=== PATIENT | male | born 1985 | race Caucasian/White ===

== ENCOUNTER 2019-05-03 02:00 | Emergency (ER) | payer OTHER ==
[~2019-05-03] VITALS: Ht 175 cm; Wt 100.0 kg
[2019-05-03] MEDS ORDERED: ASPIRIN 81 MG CHEW (CHILDREN'S ASA) PO ONE (02:30)
[2019-05-03 02:38] LABS: BASOPHILS % (AUTO) 0 % (0-10); EOSINOPHILS # (AUTO) 0.6 10^3/uL (0.0-0.3); EOSINOPHILS % (AUTO) 5 % (0-10); HEMATOCRIT 45 % (40-54); HEMOGLOBIN 15.6 G/DL (13.3-17.7); LYMPHOCYTES # (AUTO) 4.4 X 10^3 (1.0-4.0); LYMPHOCYTES % (AUTO) 39 % (12-44); MEAN CORPUSCULAR HEMOGLOBIN 29 PG (25-34); MEAN CORPUSCULAR HGB CONC 35 G/DL (32-36); MEAN CORPUSCULAR VOLUME 84 FL (80-99); MEAN PLATELET VOLUME 10.8 FL (7.4-10.4); MONOCYTES # (AUTO) 1.3 X 10^3 (0.0-1.0); MONOCYTES % (AUTO) 12 % (0-12); NEUTROPHILS % (AUTO) 44 % (42-75); PLATELET COUNT 277 10^3/uL (130-400); RED CELL DISTRIBUTION WIDTH 13.4 % (10.0-14.5); WHITE BLOOD COUNT 11.3 10^3/uL (4.3-11.0)
[2019-05-03 02:47] LABS: INR 0.9 (0.8-1.4); PROTHROMBIN TIME PATIENT 12.3 SEC (12.2-14.7)
[2019-05-03 02:55] LABS: ALANINE AMINOTRANSFERASE 30 U/L (0-55); ALBUMIN 4.3 GM/DL (3.2-4.5); ALKALINE PHOSPHATASE 38 U/L (40-136); BILIRUBIN,TOTAL 0.3 MG/DL (0.1-1.0); BUN/CREATININE RATIO 19; CALCIUM 9.2 MG/DL (8.5-10.1); CARBON DIOXIDE 24 MMOL/L (21-32); CHLORIDE 106 MMOL/L (98-107); CREATINE KINASE 90 U/L (30-200); GFR ESTIMATED > 60; GLUCOSE 84 MG/DL (70-105); MAGNESIUM 1.8 MG/DL (1.6-2.4); POTASSIUM 3.3 MMOL/L (3.6-5.0); SODIUM 142 MMOL/L (135-145)
[2019-05-03 03:14] LABS: CREATINE KINASE MB 1.5 NG/ML (<6.6); TSH (THYROID ANALYZER) 2.74 UIU/ML (0.35-4.94)
[2019-05-03] MEDS ORDERED: KCL 20 MEQ TAB (K-DUR) PO ONE (03:30)
[2019-05-03 03:34] LABS: BILIRUBIN,URINE NEGATIVE (NEGATIVE); CLARITY,URINE CLEAR; COLOR,URINE YELLOW; GLUCOSE, URINE (UA) NEGATIVE (NEGATIVE); KETONES,URINE NEGATIVE (NEGATIVE); LEUKOCYTE ESTERASE ,URINE NEGATIVE (NEGATIVE); NITRITE,URINE NEGATIVE (NEGATIVE); PH,URINE 5.5 (5-9); PROTEIN,URINE NEGATIVE (NEGATIVE)
--- NOTE | 2019-05-03 03:40 | ED Cardiac General ---
History of Present Illness General Chief Complaint: Cardiac/General Problems Stated Complaint: IRREGULAR HRT RATE Source: patient History of Present Illness Date Seen by Provider: May 03, 2019 Time Seen by Provider: 02:18 Initial Comments PT ARRIVES VIA POV FROM HOME WITH STATES "FEELS LIKE MY HEART'S FLUTTERING" STATES THAT AROUND 0030, HE WAS LAYING ON THE COUCH, WATCHING TV AND EATING POPSICLES (EATS MULTIPLE POPSICLES EVERY NIGHT) AND HAD SUDDEN ONSET OF FLU TTERING SENSATION IN HIS CHEST AND FEELING LIKE HIS HEART WAS BEATING IRREGULAR. EPISODE LASTED ABOUT 20 MINUTES AND RESOLVED PRIOR TO ARRIVAL, AND IS NOT OCCURRING NOW STATES HE HAD THE SAME THING HAPPEN LAST NIGHT, BUT ONLY LASTED A COUPLE OF MINUTES THEN. PT STATES THAT HE HAS HAD A COUPLE OF EPISODES OF SEVERE DIZZINESS WITH STRENUOUS ACTIVITY / CUTTING WOOD OVER THE LAST COUPLE OF WEEKS. NO DIZZINESS TONIGHT. DID NOT HAVE ANY NOTICEABLE PALPITATIONS OR ANY OTHER SYMPTOMS WITH THE DIZZINESS NO SYNCOPE NO SHORTNESS OF BREATH NO SWEATS NO CHEST PAIN NO NAUSEA NO PARESTHESIAS OR MOTOR DEFICITS NO SWELLING IN LEGS/ FEET OR RECENT TRAVEL OR PROLONGED SITTING HAS BEEN VERY TIRED THE LAST COUPLE OF DAYS NO FEVER, COUGH OR RECENT ILLNESS PT IS LIND, AND IS USED TO STRENUOUS ACTIVITY--NEVER HAD THESE SYMPTOMS BEFORE. PT STATES HIS HEART RATE IS ALWAYS VERY LOW--IN THE 40'S--HAD A STRESS TEST 10 YEARS AGO IN [place], BECAUSE OF HIS SLOW HEART RATE--COULD NEVER GET HIS HEART RATE ABOVE 80, AFTER 35 + MINUTES ON THE TREADMILL, NO SYMPTOMS OR ABNORMALITIES ON THE STRESS TEST. PT DRINKS DR. PEPPER ALL DAY, BUT NO OTHER CAFFEINE OR STIMULANTS OR DECONGESTANTS. PT USED TO SMOKE 3 PPD, NOW DOWN TO 3/4 PPD PT USED TO DRINK HEAVILY--30 PACK/DAY, NOW DRINKS MUCH LESS, AND HAS NOT HAD ANY IN AT LEAST 2 WEEKS. NO HISTORY OF DRUG USE PCP: DR. EARNEST CALLEJAS, [place] Allergies and Home Medications Allergies Coded Allergies: No Known Drug Allergies (Unverified , 05/03/19) Patient Home Medication List Home Medication List Reviewed: Yes Review of Systems Review of Systems Constitutional: No chills, No diaphoresis, No fever; malaise EENTM: No Symptoms Reported Respiratory: No Symptoms Reported, Cough ("CHRONIC SMOKER'S COUGH" ); Denies Orthopnea, Denies Shortness of Air, Denies SOA With Exertion, Denies Wheezing Cardiovascular: Denies Chest Pain, Denies Edema; Irregular Heart Rate, Palpitations; Denies Syncope Gastrointestinal: No Symptoms Reported; Denies Abdominal Pain, Denies Nausea, Denies Vomiting Genitourinary: No Symptoms Reported Musculoskeletal: no symptoms reported Skin: no symptoms reported Psychiatric/Neurological: No Symptoms Reported Endocrine: No Symptoms Reported Hematologic/Lymphatic: No Symptoms Reported Past [id number]-[id number]-Awfonf Hx Patient Social History Alcohol Use: Regular Use (USED TO DRINK 30 PACK/DAY, NOW DRINKS MUCH LESS AND NOT DAILY, PER PT 05/03/19) Recreational Drug Use: No Smoking Status: Current Everyday Smoker (USED TO SMOKE 3 PPD, NOW 3/4 PPD-PER PT 05/03/19) Type Used: Cigarettes Recent Foreign Travel: No Contact w/Someone Who Travel: No Past Medical History Surgeries: Yes (LEFT KNEE SCOPE) Orthopedic Respiratory: No Cardiac: Yes (CHRONIC ASYMPTOMATIC BRADYCARDIA--HR IN 40'S) Neurological: No Reproductive Disorders: No Genitourinary: No Gastrointestinal: No Musculoskeletal: Yes (LEFT KNEE SCOPE) Endocrine: No HEENT: No Cancer: No Psychosocial: No Integumentary: No Blood Disorders: No Physical Exam Vital Signs Vital Signs - First Documented 05/03/19 05/03/19 02:10 03:50 Temp 36.9 Pulse 54 Resp 20 B/P (MAP) 148/84 (105) Pulse Ox 99 O2 Delivery Room Air Capillary Refill : Height, Weight, BMI Height: '" Weight: lbs. oz. kg; BMI Method: General Appearance: No Apparent Distress, WD/WN Neck: Full Range of Motion, Normal Inspection, Non Tender, Supple Respiratory: Chest Non Tender, Normal Breath Sounds, No Accessory Muscle Use, No Respiratory Distress Cardiovascular: Regular Rate, Rhythm, No Edema, No JVD, No Murmur Gastrointestinal: No Organomegaly, Non Tender, Soft Extremity: Normal Inspection, No Pedal Edema Neurologic/Psychiatric: Alert, Oriented x3, No Motor/Sensory Deficits, Normal Mood/Affect, sash installer II-XII Norm as Tested Skin: Normal Color, Warm/Dry, Tattoos/Piercings (TATTOOS) Progress/Results/Core Measures Results/Orders Lab Results Laboratory Tests Test 05/03/19 02:17 05/03/19 03:25 Range/Units White Blood Count 11.3 H 4.3-11.0 10^3/uL Red Blood Count 5.41 4.35-5.85 10^6/uL Hemoglobin 15.6 13.3-17.7 G/DL Hematocrit 45 40-54 % Mean Corpuscular Volume 84 80-99 FL Mean Corpuscular Hemoglobin 29 25-34 PG Mean Corpuscular Hemoglobin Concent 35 32-36 G/DL Red Cell Distribution Width 13.4 10.0-14.5 % Platelet Count 277 130-400 10^3/uL Mean Platelet Volume 10.8 H 7.4-10.4 FL Neutrophils (%) (Auto) 44 42-75 % Lymphocytes (%) (Auto) 39 12-44 % Monocytes (%) (Auto) 12 0-12 % Eosinophils (%) (Auto) 5 0-10 % Basophils (%) (Auto) 0 0-10 % Neutrophils # (Auto) 5.0 1.8-7.8 X 10^3 Lymphocytes # (Auto) 4.4 H 1.0-4.0 X 10^3 Monocytes # (Auto) 1.3 H 0.0-1.0 X 10^3 Eosinophils # (Auto) 0.6 H 0.0-0.3 10^3/uL Basophils # (Auto) 0.0 0.0-0.1 10^3/uL Prothrombin Time 12.3 12.2-14.7 SEC INR Comment 0.9 0.8-1.4 Activated Partial Thromboplast Time 25 24-35 SEC Sodium Level 142 135-145 MMOL/L Potassium Level 3.3 L 3.6-5.0 MMOL/L Chloride Level 106 98-107 MMOL/L Carbon Dioxide Level 24 21-32 MMOL/L Anion Gap 12 5-14 MMOL/L Blood Urea Nitrogen 19 H 7-18 MG/DL Creatinine 1.00 0.60-1.30 MG/DL Estimat Glomerular Filtration Rate > 60 BUN/Creatinine Ratio 19 Glucose Level 84 70-105 MG/DL Calcium Level 9.2 8.5-10.1 MG/DL Corrected Calcium 9.0 8.5-10.1 MG/DL Magnesium Level 1.8 1.6-2.4 MG/DL Total Bilirubin 0.3 0.1-1.0 MG/DL Aspartate Amino Transf (AST/SGOT) 13 5-34 U/L Alanine Aminotransferase (ALT/SGPT) 30 0-55 U/L Alkaline Phosphatase 38 L 40-136 U/L Total Creatine Kinase 90 30-200 U/L Creatine Kinase MB 1.5 <6.6 NG/ML Myoglobin 28.8 10.0-92.0 NG/ML Troponin I < 0.028 <0.028 NG/ML B-Type Natriuretic Peptide < 10.0 <100.0 PG/ML Total Protein 7.0 6.4-8.2 GM/DL Albumin 4.3 3.2-4.5 GM/DL TSH Oliver Testing 2.74 0.35-4.94 UIU/ML Serum Alcohol < 10 <10 MG/DL Urine Color YELLOW Urine Clarity CLEAR Urine pH 5.5 5-9 Urine Specific Sells 1.010 L 1.016-1.022 Urine Protein NEGATIVE NEGATIVE Urine Glucose (UA) NEGATIVE NEGATIVE Urine Ketones NEGATIVE NEGATIVE Urine Nitrite NEGATIVE NEGATIVE Urine Bilirubin NEGATIVE NEGATIVE Urine Urobilinogen 0.2 < = 1.0 MG/DL Urine Leukocyte Esterase NEGATIVE NEGATIVE Urine RBC (Auto) NEGATIVE NEGATIVE Urine RBC NONE /HPF Urine WBC NONE /HPF Urine Squamous Epithelial Cells RARE /HPF Urine Crystals NONE /LPF Urine Bacteria TRACE /HPF Urine Casts NONE /LPF Urine Mucus NEGATIVE /LPF Urine Culture Indicated NO Urine Opiates Screen NEGATIVE NEGATIVE Urine Oxycodone Screen NEGATIVE NEGATIVE Urine Methadone Screen NEGATIVE NEGATIVE Urine Propoxyphene Screen NEGATIVE NEGATIVE Urine Barbiturates Screen NEGATIVE NEGATIVE Ur Tricyclic Antidepressants Screen NEGATIVE NEGATIVE Urine Phencyclidine Screen NEGATIVE NEGATIVE Urine Amphetamines Screen NEGATIVE NEGATIVE Urine Methamphetamines Screen NEGATIVE NEGATIVE Urine Benzodiazepines Screen NEGATIVE NEGATIVE Urine Cocaine Screen NEGATIVE NEGATIVE Urine Cannabinoids Screen NEGATIVE NEGATIVE My Orders Orders - RICHARD HICKEY DO Ed Iv/Invasive Line Start (05/03/19 02:30) Alcohol (05/03/19 02:30) BNP (05/03/19 02:30) Cbc With Automated Diff (05/03/19 02:30) Comprehensive Metabolic Panel (05/03/19 02:30) Creatine Kinase (05/03/19 02:30) Creatine Kinase Mb (05/03/19 02:30) Drug Screen Stat (Urine) (05/03/19 02:30) Magnesium (05/03/19 02:30) Protime With Inr (05/03/19 02:30) Partial Thromboplastin Time (05/03/19 02:30) Thyroid Analyzer (05/03/19 02:30) Ua Culture If Indicated (05/03/19 02:30) Myoglobin Serum (05/03/19 02:30) Troponin I (05/03/19 02:30) Chest 1 View, Ap/Pa Only (05/03/19 02:30) Aspirin Chewable Tablet (Baby Aspirin Ch (05/03/19 02:30) Potassium Chloride (Tablet) (K Dur Table (05/03/19 03:30) Medications Given in ED Current Medications Medications Dose Ordered Sig/Angel Luis Route Start Time Stop Time Status Last Admin Dose Admin Aspirin 324 mg ONCE ONCE PO 05/03/19 02:30 05/03/19 02:32 DC 05/03/19 02:37 324 MG Potassium Chloride 20 meq ONCE ONCE PO 05/03/19 03:30 05/03/19 03:31 DC 05/03/19 03:48 20 MEQ Vital Signs/I&O 05/03/19 05/03/19 02:10 03:50 Temp 36.9 36.9 Pulse 54 52 Resp 20 18 B/P (MAP) 148/84 (105) 122/72 Pulse Ox 99 O2 Delivery Room Air Room Air Progress Progress Note : Progress Note NO SYMPTOMS DURING ER STAY NO ARRHYTHMIAS HR IN 50'S, BP NORMAL/STABLE WILL ARRANGE FOR FOLLOW UP WITH DR. NAVARRO AND HOLTER MONITOR PT ADVISED TO REST, AVOID ANY STRENUOUS ACTIVITY, AVOID DRIVING MACHINERY OR USING DANGEROUS EQUIPMENT, AND TO AVOID DRIVING IF HE IS DIZZY OR HAVING PALPITATIONS Initial ECG Impression Date: May 03, 2019 Initial ECG Impression Time: 02:23 Initial ECG Rate: 55 Initial ECG Rhythm: Normal Sinus Initial ECG Impression: Normal Initial ECG Comparisson: No Previous ECG Available Diagnostic Imaging Comments CXR--NO ACUTE PROCESS, PENDING RADIOLOGIST REVIEW Reviewed: Reviewed by Me Departure Impression Primary Impression: Palpitations Additional Impression: MILD HYPOKALEMIA Disposition: 01 HOME, SELF-CARE Condition: Improved Departure-Patient Inst. Referrals: EARNEST CALLEJAS MD (PCP) Primary Care Physician AZUL NAVARRO MD Patient Instructions: Hypokalemia (DC), Palpitations (DC) Add. Discharge Instructions: LOTS OF CLEAR LIQUIDS AVOID CAFFEINE OR ANY STIMULANTS OR DECONGESTANTS NO DRIVING OR USING HEAVY OR DANGEROUS EQUIPMENT CALL SCHEDULING TO ARRANGE FOR HOLTER MONITOR CALL DR. NAVARRO'S OFFICE TO ARRANGE FOR FOLLOW UP VISIT. RETURN TO ER IF SYMPTOMS RETURN. All discharge instructions reviewed with patient and/or family. Voiced understanding. RICHARD HICKEY DO May 03, 2019 03:40
[2019-05-03 03:49] LABS: BACTERIA,URINE TRACE /HPF; SQUAMOUS EPITHELIAL CELL,UR RARE /HPF
[2019-05-03 03:50] VITALS: BP 122/72
[2019-05-03 03:50] LABS: AMPHETAMINE SCREEN, URINE NEGATIVE (NEGATIVE); BARBITURATE SCREEN URINE NEGATIVE (NEGATIVE); BENZODIAZEPINES SCREEN URINE NEGATIVE (NEGATIVE); CANNABINOID SCREEN, URINE NEGATIVE (NEGATIVE); COCAINE SCREEN URINE NEGATIVE (NEGATIVE); METHADONE STAT NEGATIVE (NEGATIVE); METHAMPHETAMINE SCREEN URINE S NEGATIVE (NEGATIVE); OPIATE SCREEN URINE NEGATIVE (NEGATIVE); OXYCODONE STAT NEGATIVE (NEGATIVE); PROPOXYPHENE STAT NEGATIVE (NEGATIVE); TRICYCLIC ANTIDEPRESSANTS SCRE NEGATIVE (NEGATIVE)
--- NOTE | 2019-05-03 07:00 | Diagnostic Imaging Report ---
Indication: Irregular heartbeat. Time of exam: 2:58 AM The heart size is normal. The pulmonary vascularity is unremarkable. The lungs are clear. No infiltrate, effusion or pneumothorax is detected. Impression: No acute cardiopulmonary process is detected. Dictated by: Dictated on workstation # [id number]
== END 2019-05-03 03:57 | disposition home or self-care (01) ==
LOC: ER 02:08
DX: E87.6 Hypokalemia (principal); F17.210 Nicotine dependence, cigarettes, uncomplicated
CPT/HCPCS: 36415; 71045; 80053; 80306; 80320; 81000; 82550; 82553; 83735; 83874; 83880; 84443; 84484; 85025; 85610; 85730